=== PATIENT | male | born 1960 | race Native Hawaiian/Other Pacific Islander ===

== ENCOUNTER 2018-09-20 20:48 | Emergency (ER) | payer OTHER ==
[~2018-09-20] VITALS: Ht 172.7 cm; Wt 128.4 kg
[2018-09-20 20:48] VITALS: BP 164/77; TEMP 99.3
[2018-09-20 21:56] LABS: PLATELET COUNT 164 K/uL (142-355)
[2018-09-20 22:06] LABS: POTASSIUM 3.7 mmol/L (3.6-5.2); SODIUM 141 mmol/L (136-145)
[2018-09-21] MEDS ORDERED: AMLODIPINE BESYLATE PO (00:43)
[2018-09-21] MEDS ORDERED: ASPIRIN LOW81 MG PO (00:45)
[2018-09-21] MEDS ORDERED: ASPIRIN/ENTERIC81 MG PO (00:46)
[2018-09-21] MEDS ORDERED: LIPITOR40 MG PO (00:48)
[2018-09-21] MEDS ORDERED: CARV12.5 PO (00:49)
[2018-09-21] MEDS ORDERED: ESCITALOPRAM20 MG PO (00:51)
[2018-09-21] MEDS ORDERED: KP FOLIC ACID1 MG PO (00:52)
[2018-09-21] MEDS ORDERED: MEMA10TA2 PO (00:54)
[2018-09-21] MEDS ORDERED: GABA300C2 PO (00:56)
[2018-09-21] MEDS ORDERED: ZANTAC300 MG PO (00:59)
[2018-09-21] MEDS ORDERED: DONEPEZIL HYDRO10 MG PO (01:01)
[2018-09-21] MEDS ORDERED: BUSPIRONE10 MG PO (01:02)
[2018-09-21] MEDS ORDERED: DIVA500T2 PO (01:07)
[2018-09-21] MEDS ORDERED: BUPR150T PO (01:09)
[2018-09-21] MEDS ORDERED: TRAZODONE HYDR100 MG PO (01:10)
[2018-09-21] MEDS ORDERED: XIFAXAN550 MG PO (01:13)
[2018-09-21] MEDS ORDERED: CODEINE/APAP1 TA2 PO (01:17)
[2018-09-21] MEDS ORDERED: TYLENOL325 MG PO (01:19)
[2018-09-21] MEDS ORDERED: DIVA250T PO (01:23)
[2018-09-21] MEDS ORDERED: LAMICTAL25 MG PO (01:25)
[2018-09-21] MEDS ORDERED: LACTSYP31 PO (01:26)
[2018-09-21] MEDS ORDERED: LACTULOSE10 GM/151 PO (01:28)
== END 2018-09-20 23:08 | disposition other institution (70) ==
LOC: ED 20:48
PROVIDERS: Student in an Organized Health Care Education/Training Program
DX: R07.89 Other chest pain (principal)
CPT/HCPCS: 80053; 80307; 80320; 80329; 81000; 84484; 85027; 93005; 99285